=== PATIENT | female | born 1985 | race Caucasian/White ===

== ENCOUNTER → 2025-08-18 | Outpatient (CLI) | payer OTHER, BC ==
[~2025-08-18] MED LIST: HYDACE10B PO; META400 PO; NAPR500 PO
== END ==
LOC: LAB 13:21 → LAB SHORT 13:21
PROVIDERS: Obstetrics & Gynecology
DX: Z01.419 Encounter for gynecological examination (general) (routine) without abnormal findings (principal)
CPT/HCPCS: 87624; G0145